=== PATIENT | male | born 1955 | race Caucasian/White ===

== ENCOUNTER → 2019-01-25 | Outpatient (CLI) | payer BC, OTHER ==
--- NOTE | 2019-01-25 19:42 | XCELERA REPORT ---
[address] [address] Transthoracic Echocardiogram Report Name: CAROL ASHBY Age: 64 yrs Gender: Male : 1955 Patient Status: Outpatient Patient Location: Study Date: 01/25/2019 08:39 AM Height: 67 in Weight: 170 lb BSA: 1.9 m2 Procedure: A complete two-dimensional transthoracic echocardiogram was performed (2D, M-mode, spectral and color flow Doppler). The study was technically adequate with some images being suboptimal in quality. Reason For Study: DIZZINESS AND GIDDIENESS Ordering Physician: CLIFFORD CONNORS Performed By: Magalis Melgar Interpretation Summary The left ventricular ejection fraction is normal. Doppler measurements suggest impaired left ventricular relaxation, which is associated with grade I/IV or mild diastolic dysfunction There is borderline concentric left ventricular hypertrophy. The right ventricular systolic function is normal. The left atrial size is normal. The right atrium is normal. There is a trace amount of mitral regurgitation There is no mitral valve stenosis. No aortic regurgitation is present. There is no aortic valve stenosis There is no tricuspid stenosis. No tricuspid regurgitation. There is no pericardial effusion. MMode/2D Measurements & Calculations RVDd: 2.6 cm LVIDd: 4.4 cm FS: 34.5 % Ao root diam: 2.9 cm IVSd: 0.86 cm LVIDs: 2.9 cm EDV(Teich): Ao root area: 89.7 ml LVPWd: 0.98 cm 6.4 cm2 ESV(Teich): 32.5 ml EF(Teich): 63.8 % EDV(MOD-sp4): SV(MOD-sp4): 68.6 ml 37.9 ml ESV(MOD-sp4): 30.7 ml EF(MOD-sp4): 55.2 % Doppler Measurements & Calculations MV E max maulik: MV dec slope: Ao V2 max: LV V1 max P.3 cm/sec 99.1 cm/sec 3.1 mmHg MV A max maulik: 363.1 cm/sec2 Ao max PG: LV V1 max: 107.1 cm/sec MV dec time: 0.17 sec3.9 mmHg 87.7 cm/sec MV E/A: 0.58 PA V2 max: 89.2 cm/sec PA max P.2 mmHg Left Ventricle The left ventricle is grossly normal size. There is borderline concentric left ventricular hypertrophy. The left ventricular ejection fraction is normal. Doppler measurements suggest impaired left ventricular relaxation, which is associated with grade I/IV or mild diastolic dysfunction. Wall motion cannot be accurately commented on, but no definite regional wall motion abnormalities noted. Right Ventricle The right ventricle is grossly normal size. There is normal right ventricular wall thickness. The right ventricular systolic function is normal. Atria The right atrium is normal. The left atrial size is normal. Interarterial septum not well visualized and not well dopplered. Cannot comment on ASD/PFO presence. Mitral Valve The mitral valve is grossly normal. There is no mitral valve stenosis. There is a trace amount of mitral regurgitation. Aortic Valve The aortic valve is grossly normal. There is no aortic valve stenosis. No aortic regurgitation is present. Tricuspid Valve The tricuspid valve is not well visualized, but is grossly normal. There is no tricuspid stenosis. No tricuspid regurgitation. Pulmonic Valve The pulmonic valve is not well visualized. Great Vessels The aortic root is not well visualized but is probably normal size. The inferior vena cava was not well visualized. Effusions There is no pericardial effusion. : CLIFFORD CONNORS Shyamal
== END ==
LOC: SP 08:18
PROVIDERS: ATTEND Physician Assistant
DX: R42 Dizziness and giddiness (principal)
CPT/HCPCS: 93306